=== PATIENT | male | born 1985 | race Caucasian/White ===

== ENCOUNTER 2021-03-01 20:03 | Emergency (ER) | payer BC ==
[2021-03-01] MEDS ORDERED: Morphine 4 MG/ML VIAL ONE (20:31)
[2021-03-01] MEDS ORDERED: Ketorolac Tromethamine 30 MG/ML VIAL ONE (20:31)
[2021-03-01 20:34] LABS: #Eosinphils 0.1 10x3/uL (0.0-0.5); #Monocytes 0.8 10x3/uL (0.0-1.1); #Neutrophils 16.3 10x3/uL (1.5-8.4); %Basophils 0.2 % (0.0-2.0); %Eosinophils 0.3 % (0.0-6.0); %Lymphocytes 6.2 % (18.0-47.0); %Monocytes 4.5 % (0.0-10.0); %Neutrophils 88.5 % (40.0-75.0); Hemoglobin 15.7 g/dL (13.5-17.5); Mean Corpuscular Hemoglobin 32.3 pg (27.0-33.0); Mean Corpuscular Volume 89.7 fl (81.2-95.1); Mean Platelet Volume 11.1 fl (7.4-10.4); Platelet Count 279 10x3/uL (150-450); RBC Distribution Width 11.9 % (11.5-14.5); Red Blood Cell (RBC) Count 4.86 10x6/uL (4.32-5.72); White Blood Cell (WBC) Count 18.4 10x3/uL (3.5-10.5)
[2021-03-01 20:54] LABS: ALT (SGPT) 23 U/L (8-55); AST (SGOT) 20 U/L (5-34); Albumin 4.6 g/dL (3.5-5.0); Alkaline Phosphatase 71 U/L (40-110); Anion Gap 16 mmol/L (10-20); BUN (Urea Nitrogen) 12 mg/dL (8.9-20.6); Bilirubin, Total 1.2 mg/dL (0.2-1.2); Calc. Creatinine Clearance 0 mL/min (70-130); Calcium 9.6 mg/dL (7.8-10.44); Carbon Dioxide 23 mmol/L (22-29); Chloride 104 mmol/L (98-107); Globulin 3.9 g/dL (2.4-3.5); Glucose 114 mg/dL (70-105); Potassium 3.8 mmol/L (3.5-5.1); Protein, Total 8.5 g/dL (6.0-8.3); Sodium 139 mmol/L (136-145)
[2021-03-01] MEDS ORDERED: Morphine 10 MG/ML VIAL ONE (21:53)
== END 2021-03-01 22:55 | disposition home or self-care (01) ==
LOC: CSHERS 20:03
DX: K11.5 Sialolithiasis (principal); F17.220 Nicotine dependence, chewing tobacco, uncomplicated
CPT/HCPCS: 70491; 80053; 85025; 96374; 96375; 96376; J1885; J2270

== ENCOUNTER 2024-02-25 15:07 | Outpatient (CLI) | payer BC | END 2024-02-25 15:08 | disposition home or self-care (01) | LOC: CSHULT 15:07 | DX: N50.812 Left testicular pain (principal); N45.3 Epididymo-orchitis; N43.3 Hydrocele, unspecified | CPT/HCPCS: 76870; 93976 ==

== ENCOUNTER 2024-12-03 18:28 | Emergency (ER) | payer OTHER | END 2024-12-03 20:03 | disposition home or self-care (01) | LOC: CSHERS 18:28 | DX: K12.1 Other forms of stomatitis (principal); L04.0 Acute lymphadenitis of face, head and neck; F17.220 Nicotine dependence, chewing tobacco, uncomplicated | CPT/HCPCS: 99282 ==

== ENCOUNTER 2024-12-04 15:01 | Inpatient (IN) | payer OTHER ==
[~2024-12-04 15:01] MED LIST: Iopamidol 300 61% 100 ML VIAL FS ONE
[2024-12-04] MEDS ORDERED: Ketorolac Tromethamine 30 MG (1 mL) VIAL ONE (15:40)
[2024-12-04 16:12] LABS: ALT (SGPT) 32 U/L (Less than 45); AST (SGOT) 23 U/L (11-34); Albumin 4.4 g/dL (3.1-4.5); Alkaline Phosphatase 75 U/L (40-110); Anion Gap 17 mmol/L (10-20); BUN (Urea Nitrogen) 12 mg/dL (8.9-20.6); Bilirubin, Total 0.8 mg/dL (0.3-1.2); Calc. Creatinine Clearance 0 mL/min (70-130); Calcium 9.6 mg/dL (7.8-10.44); Carbon Dioxide 24 mmol/L (22-29); Chloride 100 mmol/L (98-107); Globulin 3.9 g/dL (2.4-3.5); Glucose 121 mg/dL (70-105); Potassium 4.0 mmol/L (3.5-5.1); Sodium 137 mmol/L (136-145)
[2024-12-04 16:15] LABS: #Basophils 0.03 10x3/uL (0.0-0.2); #Eosinophils 0.04 10x3/uL (0.0-0.5); #Monocytes 0.93 10x3/uL (0.0-1.1); #Neutrophils 14.41 10x3/uL (1.5-8.4); %Basophils 0.2 % (0.0-2.0); %Eosinophils 0.2 % (0.0-6.0); %Lymphocytes 8.7 % (18.0-47.0); %Monocytes 5.5 % (0.0-10.0); %Neutrophils 85.0 % (40.0-75.0); Hematocrit 45.4 % (38.8-50.0); Hemoglobin 16.4 g/dL (13.5-17.5); Mean Corpuscular Hemoglobin 31.9 pg (27.0-33.0); Mean Corpuscular Volume 88.3 fL (81.2-95.1); Platelet Count 276 10x3/uL (150-450); Red Blood Cell (RBC) Count 5.14 10x6/uL (4.32-5.72); White Blood Cell (WBC) Count 16.95 10x3/uL (3.5-10.5)
[2024-12-04] MEDS ORDERED: Dexamethasone 10 MG/ML VIAL ONE (16:32)
[2024-12-04] MEDS ORDERED: Acetaminophen 325 MG TAB PO PRN (17:40)
[2024-12-04] MEDS ORDERED: Ondansetron PF 4 MG/2 ML Vial IVP PRN (17:40)
[2024-12-04 18:36] VITALS: BMI 37.9
[2024-12-04] MEDS: Famotidine/PF 20 mg/2ml Vial SLOW IVP SCH (22:05)
[2024-12-05 04:02] LABS: #Basophils Less than 0.03 10x3/uL (0.0-0.2); #Eosinophils Less than 0.03 10x3/uL (0.0-0.5); #Monocytes 0.18 10x3/uL (0.0-1.1); #Neutrophils 13.06 10x3/uL (1.5-8.4); %Basophils 0.1 % (0.0-2.0); %Eosinophils 0.0 % (0.0-6.0); %Lymphocytes 7.2 % (18.0-47.0); %Monocytes 1.3 % (0.0-10.0); %Neutrophils 90.9 % (40.0-75.0); Hematocrit 42.8 % (38.8-50.0); Hemoglobin 14.6 g/dL (13.5-17.5); Mean Corpuscular Hemoglobin 30.9 pg (27.0-33.0); Mean Corpuscular Volume 90.5 fL (81.2-95.1); Platelet Count 258 10x3/uL (150-450); Red Blood Cell (RBC) Count 4.73 10x6/uL (4.32-5.72); White Blood Cell (WBC) Count 14.37 10x3/uL (3.5-10.5)
[2024-12-05] MEDS: Ketorolac Tromethamine 30 MG (1 mL) VIAL IVP PRN (16:19)
[2024-12-06 05:25] VITALS: TEMP 97.9
[2024-12-06 08:22] LABS: Hematocrit 40.8 % (38.8-50.0); Hemoglobin 13.9 g/dL (13.5-17.5); Mean Corpuscular Hemoglobin 31.3 pg (27.0-33.0); Mean Corpuscular Volume 91.9 fL (81.2-95.1); Platelet Count 268 10x3/uL (150-450); Red Blood Cell (RBC) Count 4.44 10x6/uL (4.32-5.72); White Blood Cell (WBC) Count 27.91 10x3/uL (3.5-10.5)
[2024-12-06 08:54] LABS: MDiff Complete? YES; Platelet Adequacy Comment Appears Adequate; RBC Morphology Within Normal Limits
[2024-12-06 10:11] VITALS: BP 136/80
== END 2024-12-06 11:06 | disposition home or self-care (01) | DRG 855 ==
LOC: CSHERS 15:01 → CSHTELE 17:05
PROVIDERS: ADMIT Internal Medicine; ATTEND Internal Medicine
PROC: 3E03329 Introduction of Other Anti-infective into Peripheral Vein, Percutaneous Approach (ICD-10-PCS; 2024-12-04)
PROC: 0CJS8ZZ Inspection of Larynx, Via Natural or Artificial Opening Endoscopic (ICD-10-PCS; 2024-12-04)
PROC: 0CN Mouth and Throat, Release (ICD-10-PCS; principal; 2024-12-05)
PROC: 0C9 Mouth and Throat, Drainage (ICD-10-PCS; 2024-12-05)
DX: A41.9 Sepsis, unspecified organism (principal); K11.5 Sialolithiasis; E66.9 Obesity, unspecified; K11.20 Sialoadenitis, unspecified; F17.220 Nicotine dependence, chewing tobacco, uncomplicated; K11.8 Other diseases of salivary glands; Z88.8 Allergy status to other drugs, medicaments and biological substances; Z68.37 Body mass index [BMI] 37.0-37.9, adult; Z79.01 Long term (current) use of anticoagulants
CPT/HCPCS: 36415; 70492; 80053; 83605; 85025; 87040; 96374; 96375; J0290; J0295; J1100; J1308; J1885; J2270; J7030; Q9967